=== PATIENT | female | born 1975 | race Caucasian/White ===

== ENCOUNTER 2017-09-11 22:26 | Inpatient (IN) | payer OTHER ==
[~2017-09-11] VITALS: Ht 154.9 cm; Wt 58.5 kg
[2017-09-11 22:38] VITALS: BP 141/82; PULSE 106; RESP 14; TEMP 97.8; O2SAT 75
[2017-09-11] MEDS ORDERED: MORP1TAB25 PO (22:45)
[2017-09-11] MEDS ORDERED: GABA600T PO (22:45)
[2017-09-11] MEDS ORDERED: SODIUM CHLORIDE 0.9% FLUSH 10 ML FLUSH IVF PRN (22:45)
[2017-09-11] MEDS ORDERED: OXYC30TA PO (22:45)
[2017-09-11] MEDS ORDERED: DIAZ10 PO (22:45)
[2017-09-11] MEDS ORDERED: NALOXONE HCL 2 MG/2 ML VIAL IV PUSH ONE (22:45)
--- NOTE | 2017-09-11 22:51 | PD ---
HPI Chief Complaint: Psychiatric Symptoms Time Seen by Provider: 22:45 Travel History International Travel<30 days: No Contact w/Intl Traveler<30days: No Traveled to known affect area: No History of Present Illness HPI Patient was brought in from home, with the Police Department [place] acted her because her family was concerned that she may have overdosed. The patient has access to OxyContin 30s, morphine 30, benzodiazepines as well as Neurontin. According to the family members she was seen taking and known amount of medications at once but it is not clear whether the patient was actually trying to harm herself or commit any type of suicide. However the family was concerned and asked why the police department [place] act.. Upon arrival patient was noted to have a pulse ox 80s , patient was able to provide information although she was somnolent she was able to be arousable and gave history. No known drug allergy Past medical history significant for cholecystectomy, bipolar PFSH Past Medical History Medical History: Denies Significant Hx Influenza Vaccination: No ?: Not LMP: AUGUST 2017 Social History Alcohol Use: No Tobacco Use: No Substance Use: No Allergies-Medications (Allergen,Severity, Reaction): Coded Allergies: No Known Allergies (Unverified , 09/11/17) Reported Meds & Prescriptions Reported Meds & Active Scripts Active Reported Gabapentin 600 Mg Tab 600 Mg PO BID Valium (Diazepam) 10 Mg Tab 10 Mg PO QID Morphine ER (Morphine Sulfate) 30 Mg Tab 30 Mg PO Q8H Oxycodone (Oxycodone HCl) 30 Mg Tab 30 Mg PO Q8H PRN Data Data Last Documented VS Vital Signs Date Time Temp Pulse Resp B/P (MAP) Pulse Ox O2 Delivery O2 Flow Rate FiO2 09/11/17 23:52 80 20 103/65 (78) 94 Nasal Cannula 3.00 09/11/17 23:06 98.0 Orders Orders Complete Blood Count With Diff (09/11/17 22:45) Comprehensive Metabolic Panel (09/11/17 22:45) B-Type Natriuretic Peptide (09/11/17 22:45) Act Partial Throm Time (Ptt) (09/11/17 22:45) Prothrombin Time / Inr (Pt) (09/11/17 22:45) Ckmb (Isoenzyme) Profile (09/11/17 22:45) Troponin I (09/11/17 22:45) Arterial Blood Gas (Abg) (09/11/17 22:45) Urinalysis - C+S If Indicated (09/11/17 22:45) Iv Access Insert/Monitor (09/11/17 22:45) Electrocardiogram (09/11/17 22:45) Ecg Monitoring (09/11/17 22:45) Oximetry (09/11/17 22:45) Oxygen Administration (09/11/17 22:45) Chest, Single Ap (09/11/17 22:45) Ct Pulmonary Angiogram (09/11/17 22:45) Sodium Chloride 0.9% Flush (Ns Flush) (09/11/17 22:45) Drug Screen, Random Urine (09/11/17:45) Alcohol (Ethanol) (09/11/17 22:45) Salicylates (Aspirin) (09/11/17 22:45) Tylenol (Acetaminophen) (09/11/17 22:45) Naloxone Inj (Narcan Inj) (09/11/17 22:45) Ceftriaxone Inj (Rocephin Inj) (09/11/17 23:30) Azithromycin Inj (Zithromax Inj) (09/11/17 23:30) Metronidazole 500 Mg Inj (Flagyl 500 Mg (09/11/17 23:30) Iohexol 350 Inj (Omnipaque 350 Inj) (09/11/17 23:35) CKMB (09/11/17 23:10) CKMB% (09/11/17 23:10) Admit Order (Ed Use Only) (09/12/17 00:35) Labs Laboratory Tests Test 09/11/17 22:45 09/11/17 23:10 Blood Gas Puncture Site RT BRACHIAL Blood Gas Patient Temperature 98.6 Blood Gas HCO3 32 mmol/L Blood Gas Base Excess 7.1 mmol/L Blood Gas Oxygen Saturation 86 % Arterial Blood pH 7.38 Arterial Blood Partial Pressure CO2 56 mmHg Arterial Blood Partial Pressure O2 71 mmHG Arterial Blood Oxygen Content 15.1 Vol % Arterial Blood Carboxyhemoglobin 9.0 % Arterial Blood Methemoglobin 0.6 % Blood Gas Hemoglobin 12.4 G/DL Oxygen Delivery Device NASAL CANNULA Blood Gas Liter Flow 4 L/M White Blood Count 18.6 TH/MM3 Red Blood Count 4.00 MIL/MM3 Hemoglobin 12.8 GM/DL Hematocrit 37.3 % Mean Corpuscular Volume 93.3 FL Mean Corpuscular Hemoglobin 31.9 PG Mean Corpuscular Hemoglobin Concent 34.2 % Red Cell Distribution Width 14.4 % Platelet Count 206 TH/MM3 Mean Platelet Volume 9.1 FL Neutrophils (%) (Auto) 83.3 % Lymphocytes (%) (Auto) 10.7 % Monocytes (%) (Auto) 5.9 % Eosinophils (%) (Auto) 0.0 % Basophils (%) (Auto) 0.1 % Neutrophils # (Auto) 15.5 TH/MM3 Lymphocytes # (Auto) 2.0 TH/MM3 Monocytes # (Auto) 1.1 TH/MM3 Eosinophils # (Auto) 0.0 TH/MM3 Basophils # (Auto) 0.0 TH/MM3 CBC Comment DIFF FINAL Differential Comment Prothrombin Time 10.4 SEC Prothromb Time International Ratio 1.0 RATIO Activated Partial Thromboplast Time 28.9 SEC Blood Urea Nitrogen 6 MG/DL Creatinine 0.84 MG/DL Random Glucose 106 MG/DL Total Protein 7.5 GM/DL Albumin 3.7 GM/DL Calcium Level 8.6 MG/DL Alkaline Phosphatase 119 U/L Aspartate Amino Transf (AST/SGOT) 36 U/L Alanine Aminotransferase (ALT/SGPT) 28 U/L Total Bilirubin 0.4 MG/DL Sodium Level 138 MEQ/L Potassium Level 3.6 MEQ/L Chloride Level 97 MEQ/L Carbon Dioxide Level 32.3 MEQ/L Anion Gap 9 MEQ/L Estimat Glomerular Filtration Rate 74 ML/MIN Total Creatine Kinase 374 U/L Creatine Kinase MB 4.4 NG/ML Creatine Kinase MB % 1.2 % Troponin I 0.24 NG/ML B-Type Natriuretic Peptide 215 PG/ML Salicylates Level 7.1 MG/DL Acetaminophen Level LESS THAN 2.0 MCG/ML Ethyl Alcohol Level LESS THAN 3 MG/DL MDM Medical Decision Making Medical Screen Exam Complete: Yes Emergency Medical Condition: Yes Medical Record Reviewed: Yes Interpretation(s) EKG shows normal sinus rhythm with 87 bpm, normal intervals, PVCs, no evidence of any ST elevation AL. Pulse ox shows an excellent pleth wave, on room air the patient was consistently reading at 88% pulse ox which is consistent with hypoxemia. The patient was noted to have some decreased tidal volume the patient was spontaneously breathing at a regular rate of approximately 12 Differential Diagnosis Pneumothorax versus pneumonia versus ARDS versus aspiration versus pulmonary embolus versus hypoventilation induced hypoxemia secondary to narcotics Narrative Course ABG performed on room air showed a pH of 7.38, PCO2 of 56, PaO2 of 71 and a carboxyhemoglobin of 9%... Consistent with a heavy smoker with evidence of hypoxemia and CO2 retention however CO2 retention is compensated with each is likely secondary to a COPD or emphysematous type of clinical picture CBC shows leukocytosis of 18,000 with 83% neutrophilia, no anemia, normal platelet count Coagulation profile is within normal limits Electrolytes are all within normal limits, normal kidney, normal liver functions. Elevated cardiac enzymes, troponin 0.24, CK-MB index 4.4, beta natruretic peptide 215 Patient will be admitted for IV antibiotics, further evaluation for possible non -STEMI Diagnosis Primary Impression: Pneumonia with hypoxemia Additional Impressions: Opiate overdose status post Narcan Non-STEMI [place] act Admitting Information Admitting Physician Requests: Admit Eric Rose MD September 11, 2017 22:51
--- NOTE | 2017-09-11 23:01 | RADRPT ---
EXAM DATE: 09/11/2017 10:58 PM EDT AGE/SEX: 42 years / Female INDICATIONS: Syncope. Possible overdose. CLINICAL DATA: This is the patient's initial encounter. Patient reports that signs and symptoms have been present for 1 day and indicates a pain score of Nonresponsive. MEDICAL/SURGICAL HISTORY: None. None. COMPARISON: No prior [facility] exams available for comparison. FINDINGS: Patchy consolidation seen of both lung bases, right slightly worse than left. No pleural effusion dem onstrated. No pneumothorax. Heart size within normal limits. CONCLUSION: Bibasilar consolidation. Electronically signed by: Jackson Mercer MD 09/11/2017 11:00 PM EDT
[2017-09-11 23:05] VITALS: RESP 22
[2017-09-11 23:06] VITALS: BP 105/66; PULSE 95; RESP 20; TEMP 98; O2SAT 96
[2017-09-11 23:19] LABS: AUTOMATED NEUTROPHIL # 15.5 TH/MM3 (1.8-7.7); BASOPHIL % 0.1 % (0.0-2.0); HEMATOCRIT 37.3 % (35.0-46.0); HEMOGLOBIN 12.8 GM/DL (11.6-15.3); LYMPH % 10.7 % (9.0-44.0); MEAN CELL VOLUME 93.3 FL (80.0-100.0); MEAN CORPUSCULAR HEMOGLOBIN 31.9 PG (27.0-34.0); MEAN CORPUSCULAR HGB CONC 34.2 % (32.0-36.0); MEAN PLATELET VOLUME 9.1 FL (7.0-11.0); MONO % 5.9 % (0.0-8.0); MONOCYTE # 1.1 TH/MM3 (0-0.9); NEUT % 83.3 % (16.0-70.0); PLATELET COUNT 206 TH/MM3 (150-450); RED CELL DISTRIBUTION WIDTH 14.4 % (11.6-17.2); WHITE BLOOD COUNT 18.6 TH/MM3 (4.0-11.0)
[2017-09-11] MEDS ORDERED: metroNIDAZOLE 500 MG INJ 100 ML IV ONE (23:30)
[2017-09-11] MEDS ORDERED: AZITHROMYCIN INJ 500 MG in SODIUM CHLOR 0.9% 250 ML INJ 250 ML IV ONE (23:30)
[2017-09-11] MEDS ORDERED: cefTRIAXone INJ 1,000 MG in SODIUM CHLORIDE 0.9% INJ 100 ML IV ONE (23:30)
[2017-09-11 23:34] LABS: PROTHROMBIN TIME - PATIENT 10.4 SEC (9.8-11.6)
[2017-09-11] MEDS ORDERED: IOHEXOL 350 MG/ML 10 ML VIAL (for RAD DIAG) IVCONTRAST ONE (23:35)
[2017-09-11 23:45] LABS: ALBUMIN 3.7 GM/DL (3.4-5.0); ALT (GPT) 28 U/L (10-53); AST (GOT) 36 U/L (15-37); BICARBONATE 32.3 MEQ/L (21.0-32.0); BLOOD UREA NITROGEN 6 MG/DL (7-18); CALCIUM 8.6 MG/DL (8.5-10.1); CHLORIDE 97 MEQ/L (98-107); CREATININE 0.84 MG/DL (0.50-1.00); GLOMERULAR FILTRATION RATE 74 ML/MIN (>89); GLUCOSE,RANDOM 106 MG/DL (74-106); SODIUM (NA) 138 MEQ/L (136-145)
--- NOTE | 2017-09-11 23:45 | RADRPT ---
EXAM DATE: 09/11/2017 11:37 PM EDT AGE/SEX: 42 years / Female INDICATIONS: Hypoxemia. CLINICAL DATA: This is the patient's initial encounter. Patient reports that signs and symptoms have been present for 1 day and indicates a pain score of Nonresponsive. MEDICAL/SURGICAL HISTORY: None. Cholecystectomy. Breast implants RADIATION DOSE: 4.95 CTDI (mGy) COMPARISON: No prior [facility] exams available for comparison. TECHNIQUE: Volumetric scanning was performed using a multi-row detector CT scanner during bolus infu griffin of 80 ml Omnipaque 350 (iohexol) nonionic water-soluble contrast as a single exam dose. The franc a was post processed with a variety of visualization algorithms including full volume maximum intensi ty projection and sliding thin slab reformation. Using automated exposure control and adjustment of the mA and/or kV according to patient size, radiation dose was kept as low as reasonably achievable t o obtain optimal diagnostic quality images. FINDINGS: There is no pulmonary embolus. Patchy airspace consolidation seen of both lung bases. There is mild emphysema. No pleural effusion. No pneumothorax. There is a subcarinal mediastinal lymph node that measures approximately 17 x 30 mm in size. There is a 19 mm right hilar lymph node. There is no axillary lymphadenopathy. CONCLUSION: 1. No pulmonary embolus. 2. Patchy bibasilar airspace disease, most likely infectious or inflammatory. 3. Mild emphysema. 4. Nonspecific upper limits of normal to mildly enlarged mediastinal and right hilar lymph nodes. Electronically signed by: Jackson Mercer MD 09/11/2017 11:43 PM EDT
[2017-09-11 23:50] LABS: ALKALINE PHOSPHATASE 119 U/L (45-117); TOTAL BILIRUBIN ADULT 0.4 MG/DL (0.2-1.0); TOTAL PROTEIN 7.5 GM/DL (6.4-8.2); TROPONIN I 0.24 NG/ML (0.02-0.05)
[2017-09-11 23:51] LABS: ACETAMINOPHEN LESS THAN 2.0 MCG/ML (10.0-30.0)
[2017-09-11 23:52] VITALS: BP 103/65; PULSE 80; RESP 20; O2SAT 94
[2017-09-12] VITALS (27 sets, daily range): BP systolic 87–148; BP diastolic 51–78; PULSE 64–92; RESP 16–20; TEMP 98.2–98.9; O2SAT 90–96
[2017-09-12 01:27] LABS: BACTERIA, URINE OCC /hpf; BILIRUBIN, URINE NEG (NEG); BLOOD, URINE SMALL (NEG); GLUCOSE,URINE NEG (NEG); KETONE, URINE TRACE mg/dL (NEG); NITRITE,URINE NEG (NEG); SQUAMOUS EPITHELIAL CELL URINE 9 /hpf (0-5); URINE COLOR YELLOW (YELLW/STRAW); URINE LEUKOCYTE ESTERASE NEG (NEG)
[2017-09-12] MEDS ORDERED: SODIUM CHLORIDE 0.9% FLUSH 10 ML FLUSH IV FLUSH PRN (01:45)
[2017-09-12] MEDS ORDERED: MAGNESIUM HYDROXIDE SUSP 30 ML CUP PO PRN (01:45)
[2017-09-12] MEDS ORDERED: METOCLOPRAMIDE HCL 10 MG/2 ML VIAL IV PUSH PRN (01:45)
[2017-09-12] MEDS ORDERED: ACETAMINOPHEN 325 MG TAB PO PRN (01:45)
[2017-09-12] MEDS ORDERED: LACTULOSE SYRUP 20 GM/30 ML CUP PO PRN (01:45)
[2017-09-12] MEDS ORDERED: RESP: ALBUTEROL 2.5 MG/IPRATROPIUM 0.5 MG NEB (PRN) NEB (01:45)
[2017-09-12] MEDS ORDERED: BISACODYL 10 MG SUPP RECTAL PRN (01:45)
[2017-09-12] MEDS ORDERED: SENNOSIDES 8.6 MG TAB PO PRN (01:45)
[2017-09-12] MEDS ORDERED: Vancomycin Consult Pharmacy 1 EA OTHER SCH (01:45)
[2017-09-12] MEDS: SODIUM CHLOR 0.9% 1000 ML INJ 1,000 ML IV SCH ×3 (02:12→21:14)
--- NOTE | 2017-09-12 02:39 | HHI.HP ---
HPI Service [facility] Primary Care Physician Unknown Admission Diagnosis OPIATE OVERDOSE S/P NARCAN, PNA WITH HYPOXEMIA, COPD EXAC Diagnoses: (1) PNA (pneumonia) Diagnosis: Principal (2) Hypoxia Diagnosis: Principal (3) Elevated troponin Diagnosis: Principal (4) Opiate overdose Diagnosis: Principal Travel History International Travel<30 Days: No Contact w/Intl Traveler <30 Da: No Traveled to Known Affected Are: No History of Present Illness This is a 42-year-old female with a PMH of Narcotic Abuse who is brought to the ER under [place] Act by police secondary to apparent Suicide Attempt with Opiate Overdose. Unclear how much medication patient took, however daughter states she saw patient take a handful of her medications which include OxyContin 30mg, Morphine ER 30mg, Valium 10mg and Neurontin 600mg. Daughter noted pt told he she wanted to end her life. S/p Narcan w/ some improvement, however pt remains lethargic and unable to provide much history. Denies complaints at this time, however. On arrival, BP 141/82, HR 106, O2 sat 75% on RA, Afebrile. O2 sat improved to 94% on 3L NC after Narcan. WBC 18.6. Chemistry essentially unremarkable. Troponin 0 0.24. BNP 215. INR 1.0. Urine Drug Screen positive for Opiates and Benzo. Alcohol negative. UA negative for UTI. CXR with bibasilar consolidation. CTA Pulm negative for PE. S/p Rocephin/Zithro/Flagyl in ER. Review of Systems Except as stated in HPI: all other systems reviewed are Neg ROS: Unable to obtain secondary to lethargy from overdose. Past Family Social History Past Medical History PMH: Narcotic Abuse/Dependence Past Surgical History PAST SURGICAL HISTORY: Cholecystectomy Allergies: Coded Allergies: No Known Allergies (Unverified , 09/11/17) Family History PAST FAMILY HISTORY: Reviewed. No h/o DM or CAD Social History PAST SOCIAL HISTORY: Unknown Physical Exam Vital Signs Vital Signs Date Time Temp Pulse Resp B/P (MAP) Pulse Ox O2 Delivery O2 Flow Rate FiO2 09/11/17 23:52 80 20 103/65 (78) 94 Nasal Cannula 3.00 09/11/17 23:06 98.0 95 20 105/66 (79) 96 Nasal Cannula 4.00 09/11/17 23:05 22 09/11/17 23:04 96 Nasal Cannula 4.00 09/11/17 22:38 97.8 106 14 141/82 (101) 75 Physical Exam PE: GENERAL: Middle-aged white female in no acute distress, lethargic, sleeping, arouses intermittently, answers minimal questions.. HEENT: PERRLA, EOMI. No scleral icterus or conjunctival pallor. No lid lag or facial droop. CARDIOVASCULAR: Regular rate and rhythm. No obvious murmurs to auscultation. No chest tenderness to palpation. RESPIRATORY: No obvious rhonchi or wheezing. Clear to auscultation. Breath sounds equal bilaterally. GASTROINTESTINAL: Abdomen soft, non-tender, nondistended. BS normal. MUSCULOSKELETAL: Extremities without clubbing, cyanosis, or edema. No obvious deformities. NEUROLOGICAL: Lethargic due to overdose, answers questions intermittently. No focal neurologic deficits. Moving both upper and lower extremities spontaneously. Laboratory Laboratory Tests Test 09/11/17 22:45 09/11/17 23:10 09/12/17 00:45 Blood Gas Puncture Site RT BRACHIAL Blood Gas Patient Temperature 98.6 Blood Gas HCO3 32 Blood Gas Base Excess 7.1 Blood Gas Oxygen Saturation 86 Arterial Blood pH 7.38 Arterial Blood Partial Pressure CO2 56 Arterial Blood Partial Pressure O2 71 Arterial Blood Oxygen Content 15.1 Arterial Blood Carboxyhemoglobin 9.0 Arterial Blood Methemoglobin 0.6 Blood Gas Hemoglobin 12.4 Oxygen Delivery Device NASAL CANNULA Blood Gas Liter Flow 4 White Blood Count 18.6 Red Blood Count 4.00 Hemoglobin 12.8 Hematocrit 37.3 Mean Corpuscular Volume 93.3 Mean Corpuscular Hemoglobin 31.9 Mean Corpuscular Hemoglobin Concent 34.2 Red Cell Distribution Width 14.4 Platelet Count 206 Mean Platelet Volume 9.1 Neutrophils (%) (Auto) 83.3 Lymphocytes (%) (Auto) 10.7 Monocytes (%) (Auto) 5.9 Eosinophils (%) (Auto) 0.0 Basophils (%) (Auto) 0.1 Neutrophils # (Auto) 15.5 Lymphocytes # (Auto) 2.0 Monocytes # (Auto) 1.1 Eosinophils # (Auto) 0.0 Basophils # (Auto) 0.0 CBC Comment DIFF FINAL Differential Comment Prothrombin Time 10.4 Prothromb Time International Ratio 1.0 Activated Partial Thromboplast Time 28.9 Blood Urea Nitrogen 6 Creatinine 0.84 Random Glucose 106 Total Protein 7.5 Albumin 3.7 Calcium Level 8.6 Alkaline Phosphatase 119 Aspartate Amino Transf (AST/SGOT) 36 Alanine Aminotransferase (ALT/SGPT) 28 Total Bilirubin 0.4 Sodium Level 138 Potassium Level 3.6 Chloride Level 97 Carbon Dioxide Level 32.3 Anion Gap 9 Estimat Glomerular Filtration Rate 74 Total Creatine Kinase 374 Creatine Kinase MB 4.4 Creatine Kinase MB % 1.2 Troponin I 0.24 B-Type Natriuretic Peptide 215 Salicylates Level 7.1 Acetaminophen Level LESS THAN 2.0 Ethyl Alcohol Level LESS THAN 3 Urine Color YELLOW Urine Turbidity CLEAR Urine pH 7.0 Urine Specific [place] 1.023 Urine Protein NEG Urine Glucose (UA) NEG Urine Ketones TRACE Urine Occult Blood SMALL Urine Nitrite NEG Urine Bilirubin NEG Urine Urobilinogen LESS THAN 2.0 Urine Leukocyte Esterase NEG Urine RBC 2 Urine WBC 1 Urine Squamous Epithelial Cells 9 Urine Bacteria OCC Microscopic Urinalysis Comment CULT NOT INDICATED Urine Opiates Screen POS Urine Barbiturates Screen NEG Urine Amphetamines Screen NEG Urine Benzodiazepines Screen POS Urine Cocaine Screen NEG Urine Cannabinoids Screen NEG Result Diagram: 09/11/17230909/11/172309 Caprini VTE Risk Assessment Caprini VTE Risk Assessment: No/Low Risk (score <= 1) Caprini Risk Assessment Model Point Value = 1 Point Value = 2 Point Value = 3 Point Value = 5 Age 41-60 Minor surgery BMI > 25 kg/m2 Swollen legs Varicose veins or History of unexplained or recurrent spontaneous Oral contraceptives or hormone replacement Sepsis (< 1 month) Serious lung disease, including pneumonia (< 1 month) Abnormal pulmonary function Acute myocardial infarction Congestive heart failure (< 1 month) History of inflammatory bowel disease Medical patient at bed rest Age 61-74 Arthroscopic surgery Major open surgery (> 45 min) Laparoscopic surgery (> 45 min) Malignancy Confined to bed (> 72 hours) Immobilizing plaster cast Central venous access Age >= 75 History of VTE Family history of VTE Factor V Leiden Prothrombin [id number] Lupus anticoagulant Anticardiolipin antibodies Elevated serum homocysteine Heparin-induced thrombocytopenia Other congenital or acquired thrombophilia Stroke (< 1 month) Elective arthroplasty Hip, pelvis, or leg fracture Acute spinal cord injury (< 1 month) Prophylaxis Regimen Total Risk Factor Score Risk Level Prophylaxis Regimen 0-1 Low Early ambulation 2 Moderate Order ONE of the following: *Sequential Compression Device (SCD) *Heparin 5000 units SQ BID 3-4 Higher Order ONE of the following medications: *Heparin 5000 units SQ TID *Enoxaparin/Lovenox 40 mg SQ daily (WT < 150 kg, CrCl > 30 mL/min) *Enoxaparin/Lovenox 30 mg SQ daily (WT < 150 kg, CrCl > 10-29 mL/min) *Enoxaparin/Lovenox 30 mg SQ BID (WT < 150 kg, CrCl > 30 mL/min) AND/OR *Sequential Compression Device (SCD) 5 or more Highest Order ONE of the following medications: *Heparin 5000 units SQ TID (Preferred with Epidurals) *Enoxaparin/Lovenox 40 mg SQ daily (WT < 150 kg, CrCl > 30 mL/min) *Enoxaparin/Lovenox 30 mg SQ daily (WT < 150 kg, CrCl > 10-29 mL/min) *Enoxaparin/Lovenox 30 mg SQ BID (WT < 150 kg, CrCl > 30 mL/min) AND *Sequential Compression Device (SCD) Assessment and Plan Problem List: (1) PNA (pneumonia) ICD Code: J18.9 - Pneumonia, unspecified organism (2) Hypoxia ICD Code: R09.02 - Hypoxemia (3) Elevated troponin ICD Code: R74.8 - Abnormal levels of other serum enzymes (4) Opiate overdose ICD Code: T40.601A - Poisoning by unspecified narcotics, accidental ( unintentional), initial encounter Assessment and Plan A/P: 1. PNA: CXR w/ bibasilar consolidations, WBC 18, s/p Rocephin/Zithro/Flagyl, will continue w/ IV Abx Vanc/Cefepime, DuoNeb prn. 2. Hypoxia: O2 sat 75% on RA, s/p Narcan w/ improvement to 94% on 4L NC, monitor O2 closely. 3. Elevated Trop: Trop 0.24, denies c/o chest pain, likely demand ischemia from hypoxia, check serial cardiac enzymes for trend, consult Cardiology for further evaluation. 4. Opiate Overdose: and Benzo, unclear how much she took, s/p Narcan with some improvement but remains lethargic/intermittently arousable. Currently under [place] Act. Consult Psych 5. DVT Prophylaxis: SCD/Teds 6. Social work for d/c planning as needed. 7. Case discussed w/ ER physician at length, labs/records/imaging reviewed by me. Physician Certification 2 Midnight Certification Type: Admission for Inpatient Services Order for Inpatient Services The services are ordered in accordance with Medicare regulations or non- Medicare payer requirements, as applicable. In the case of services not specified as inpatient-only, they are appropriately provided as inpatient services in accordance with the 2-midnight benchmark. Estimated LOS (days): 2 days is the estimated time the patient will need to remain in the hospital, assuming treatment plan goals are met and no additional complications. Post-Hospital Plan: Not yet determined Carito Guevara MD September 12, 2017 02:39
[2017-09-12] MEDS ORDERED: VANCOMYCIN INJ 1,250 MG in SODIUM CHLOR 0.9% 250 ML INJ 250 ML IV ONE (03:00)
[2017-09-12] MEDS: SODIUM CHLORIDE 0.9% FLUSH 10 ML FLUSH IV FLUSH SCH ×2 (08:22→21:00)
[2017-09-12] MEDS: DOCUSATE SODIUM 50 MG/SENNA 8.6 MG TAB PO SCH ×2 (08:22→21:00)
[2017-09-12] MEDS: CEFEPIME INJ 1,000 MG in SODIUM CHLORIDE 0.9% INJ 100 ML IV SCH ×2 (08:22→21:14)
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
--- NOTE | 2017-09-12 12:09 | MB ---
cc: Jeff Munroe MD DATE: 09/12/2017 REASON FOR CONSULTATION: Abnormal troponin levels. HISTORY OF PRESENT ILLNESS: The patient is a 42-year-old white female with no major past medical history who was brought to the hospital under [place] Act due to family concerns of drug overdose. Troponin levels were checked and found to be slightly abnormal. The patient denies any chest pain, shortness of breath, dizziness, syncope, near syncope, palpitations, pedal edema, paroxysmal nocturnal dyspnea, flu symptoms, cough. PAST MEDICAL HISTORY: None. PAST SURGICAL HISTORY: Cholecystectomy. CARDIAC MEDICATIONS AT HOME: None. ALLERGIES: NO KNOWN DRUG ALLERGIES. FAMILY HISTORY: The patient's father, who is 60, has problems with congestive heart failure, although with no definite history of myocardial infarction. SOCIAL HISTORY: The patient smokes a little less than a pack of cigarettes per day. She denies alcohol abuse. REVIEW OF SYSTEMS: As in history of present illness, otherwise negative or noncontributory. She also denies headache, abdominal pain, melena, dyspepsia, bright red blood per rectum. PHYSICAL EXAMINATION: VITAL SIGNS: Blood pressure 87/51 with a pulse of 70, respirations 18. GENERAL: She is a well-developed, well-nourished white female, in no acute distress. NECK: Jugular venous pressure is normal. Carotid pulses are 2+ bilaterally and without bruits. CHEST: Reveals clear lungs ambrocio. CARDIAC: She has a regular rhythm and rate without S3, S4, or murmur. ABDOMEN: She has a soft, nontender abdomen. Bowel sounds are present. There is no definite hepatosplenomegaly. EXTREMITIES: Reveals no clubbing, cyanosis or edema. LABORATORY DATA: EKG: The EKG is currently not in the computer and I am unable to locate the EKG in her chart or on the floor. Chest x-ray shows bibasilar consolidation. Laboratory data includes WBC 18.6, hemoglobin 12.8, platelets 206. Potassium 3.6, BUN 6, creatinine 0.84. CK 374 with 1.2% MB fraction, troponin 0.24. IMPRESSION: Minimal troponin elevation in this 42-year-old white female with no major past medical history. There is no other clinical evidence for acute coronary syndrome. CK is negative for myocardial infarction. I am currently unable to locate her EKG, but reportedly it shows no acute changes. The patient has no major risk factors for coronary disease. There is no definite evidence for congestive heart failure. RECOMMENDATIONS: No additional cardiac workup at this time. MD LAKEISHA Recinos/TL , 11:44 AM , 12:08 PM MTDNael
[2017-09-12] MEDS: GABAPENTIN 300 MG CAP PO SCH ×2 (12:46→21:13)
[2017-09-12] MEDS: DIAZEPAM 5 MG TAB PO SCH ×2 (14:13→21:13)
[2017-09-12] MEDS: VANCOMYCIN INJ 750 MG in SODIUM CHLOR 0.9% 250 ML INJ 250 ML IV SCH (14:35)
--- NOTE | 2017-09-12 14:36 | EKG ---
Date Performed: 09/11/2017 Time Performed: 22:48:49 PTAGE: 42 years EKG: Sinus rhythm NORMAL ECG NO PREVIOUS TRACING DOCTOR: Fernando Arevalo Interpretating Date/Time 09/12/2017 14:35:13
--- NOTE | 2017-09-12 14:36 | EKG ---
Date Performed: 09/12/2017 Time Performed: 07:41:08 PTAGE: 42 years EKG: Sinus rhythm Poor R wave progression - probable normal variant Anterior T wave changes are nonspecific Borderline ECG Compared to PREVIOUS TRACING , the minor T-wave changes are new. PREVIOUS TRACIN09/11/2017 22.48 DOCTOR: Fernando Arevalo Interpretating Date/Time 09/12/2017 14:35:38
[2017-09-12] MEDS ORDERED: POTASSIUM CHLORIDE 20 MEQ CONTROLLED RELEASE TAB PO ONE (15:45)
[2017-09-13] VITALS (23 sets, daily range): BP systolic 119–137; BP diastolic 57–82; PULSE 46–82; RESP 16–20; TEMP 97.6–98.7; O2SAT 92–96
[2017-09-13] MEDS: VANCOMYCIN INJ 750 MG in SODIUM CHLOR 0.9% 250 ML INJ 250 ML IV SCH ×3 (02:34→21:40)
[2017-09-13 04:51] LABS: AUTOMATED NEUTROPHIL # 8.2 TH/MM3 (1.8-7.7); BASOPHIL % 0.2 % (0.0-2.0); EOSINOPHIL # 0.2 TH/MM3 (0-0.4); EOSINOPHIL % 1.7 % (0.0-4.0); HEMOGLOBIN 11.8 GM/DL (11.6-15.3); LYMPH % 21.2 % (9.0-44.0); LYMPHOCYTE # 2.5 TH/MM3 (1.0-4.8); MEAN CELL VOLUME 93.8 FL (80.0-100.0); MEAN CORPUSCULAR HEMOGLOBIN 31.5 PG (27.0-34.0); MEAN CORPUSCULAR HGB CONC 33.6 % (32.0-36.0); MEAN PLATELET VOLUME 9.7 FL (7.0-11.0); MONO % 7.7 % (0.0-8.0); MONOCYTE # 0.9 TH/MM3 (0-0.9); NEUT % 69.2 % (16.0-70.0); PLATELET COUNT 207 TH/MM3 (150-450); RED BLOOD COUNT 3.73 MIL/MM3 (4.00-5.30); RED CELL DISTRIBUTION WIDTH 14.5 % (11.6-17.2); WHITE BLOOD COUNT 11.8 TH/MM3 (4.0-11.0)
[2017-09-13] MEDS: DIAZEPAM 5 MG TAB PO SCH ×3 (05:40→20:52)
[2017-09-13 05:51] LABS: ALBUMIN 2.6 GM/DL (3.4-5.0); ALKALINE PHOSPHATASE 85 U/L (45-117); ALT (GPT) 25 U/L (10-53); AST (GOT) 42 U/L (15-37); BICARBONATE 27.4 MEQ/L (21.0-32.0); BLOOD UREA NITROGEN 4 MG/DL (7-18); CALCIUM 7.9 MG/DL (8.5-10.1); CHLORIDE 109 MEQ/L (98-107); CREATININE 0.52 MG/DL (0.50-1.00); GLOMERULAR FILTRATION RATE 129 ML/MIN (>89); GLUCOSE,RANDOM 83 MG/DL (74-106); SODIUM (NA) 144 MEQ/L (136-145); TOTAL BILIRUBIN ADULT 0.3 MG/DL (0.2-1.0); TOTAL PROTEIN 5.5 GM/DL (6.4-8.2)
[2017-09-13] MEDS ORDERED: POTASSIUM CHLORIDE 20 MEQ CONTROLLED RELEASE TAB PO ONE ×2 (06:15→19:30)
[2017-09-13 06:35] LABS: MAGNESIUM 1.8 MG/DL (1.5-2.5)
[2017-09-13] MEDS: SODIUM CHLOR 0.9% 1000 ML INJ 1,000 ML IV SCH (07:31)
[2017-09-13] MEDS: CEFEPIME INJ 1,000 MG in SODIUM CHLORIDE 0.9% INJ 100 ML IV SCH ×2 (09:00→20:50)
[2017-09-13] MEDS: SODIUM CHLORIDE 0.9% FLUSH 10 ML FLUSH IV FLUSH SCH ×2 (09:00→20:52)
[2017-09-13] MEDS: DOCUSATE SODIUM 50 MG/SENNA 8.6 MG TAB PO SCH ×2 (09:29→20:51)
[2017-09-13] MEDS: GABAPENTIN 300 MG CAP PO SCH ×2 (09:30→20:51)
[2017-09-13] MEDS: NS + KCL 20 MEQ INJ 1,000 ML IV SCH ×2 (12:15→21:40)
--- NOTE | 2017-09-13 12:19 | HHI.PR ---
Subjective Remarks awake and alert, denies any cough, pain or shortness of breath or diarrhea good po wondering why she is being kept here doem family dynamics- disagreement with siblings Objective Vitals Vital Signs Date Time Temp Pulse Resp B/P (MAP) Pulse Ox O2 Delivery O2 Flow Rate FiO2 09/13/17 11:18 98.5 69 18 129/73 (91) 94 09/13/17 11:18 65 09/13/17 10:36 77 09/13/17 09:02 74 09/13/17 08:52 97.6 71 18 125/78 (94) 95 09/13/17 08:52 71 09/13/17 06:00 69 09/13/17 05:00 68 09/13/17 04:00 70 09/13/17 03:00 82 16 129/76 (93) 92 09/13/17 03:00 80 09/13/17 02:00 74 09/13/17 01:00 74 09/13/17 00:00 68 09/12/17 23:40 79 20 112/69 (83) 92 09/12/17 23:00 77 09/12/17 22:00 72 09/12/17 21:00 70 09/12/17 20:00 74 09/12/17 19:45 98.3 80 16 113/69 (84) 92 09/12/17 19:00 69 09/12/17 18:01 68 09/12/17 17:00 84 09/12/17 16:00 72 09/12/17 15:45 98.9 75 18 115/69 (84) 90 09/12/17 15:00 81 09/12/17 14:00 76 09/12/17 13:00 74 I/O 09/12/17 09/12/17 09/12/17 09/13/17 09/13/17 09/13/17 07:00 15:00 23:00 07:00 15:00 23:00 Intake Total 1060 ml 1200 ml 480 ml Output Total 400 ml Balance 1060 ml 800 ml 480 ml Intake Oral 360 ml 400 ml 480 ml IV Total 700 ml 800 ml Output Urine Total 400 ml # Voids 2 2 # Bowel Movements 1 0 Result Diagram: 09/13/17 0340 09/13/17 0340 Imaging Last Impressions Chest X-Ray 5/26/18 2245 Signed Impressions: CONCLUSION: Bibasilar consolidation. CT Angiography 09/11/172244 Signed Impressions: CONCLUSION: 1. No pulmonary embolus. 2. Patchy bibasilar airspace disease, most likely infectious or inflammatory. 3. Mild emphysema. 4. Nonspecific upper limits of normal to mildly enlarged mediastinal and right hilar lymph nodes. Objective Remarks awake and alert, not acute disteess, appears a little manic anicteric no throat exudates lungs- no rales regular rhythm abdomens oft, nontender extremities no edema neuro exam- unrmarkable A/P Problem List: (1) PNA (pneumonia) ICD Code: J18.9 - Pneumonia, unspecified organism (2) Hypoxia ICD Code: R09.02 - Hypoxemia (3) Elevated troponin ICD Code: R74.8 - Abnormal levels of other serum enzymes (4) Opiate overdose ICD Code: T40.601A - Poisoning by unspecified narcotics, accidental ( unintentional), initial encounter Assessment and Plan 42 years old female PNA: CXR w/ bibasilar consolidations, WBC 18 trended down, 11 will continue w / IV Abx Vanc/Cefepime, DuoNeb prn. Hypoxia:resolved- good sats at room air. O2 sat 75% on RA on admission, s/p Narcan w/ improvement t monitor O2 closely. Elevated Trop: non cardiac, seen by cardiology- no need for further work up Trop 0.24, denies c/o chest pain, likely demand ischemia from hypoxia, check serial cardiac enzymes for trend, consult Cardiology for further evaluation. Opiate Overdose: and Benzo, unclear how much she took, s/p Narcan. MS improved. Currently under [place] Act. Psychiatry ff Rhabdomyolysis- start IVF. FF CK level Hypokalemia- received 40 meq po x 1 now. Start IVF with KCL for rhabdo. give another po KCL this evening. check BMP in am DVT Prophylaxis: SCD/Teds. Up and ambulating Nolan Portillo MD September 13, 2017 12:19
[2017-09-13] MEDS ORDERED: POTASSIUM CHLOR 10 MEQ PREMIX 100 ML IV SCH (12:30)
[2017-09-13] MEDS ORDERED: PHARMACY ORDERED LAB ONE (13:45)
[2017-09-13 15:07] LABS: VANCOMYCIN TROUGH 6.9 MCG/ML (5.0-10.0)
[2017-09-14] VITALS (17 sets, daily range): BP systolic 112–147; BP diastolic 70–88; PULSE 35–67; RESP 18–20; TEMP 97.7–98.4; O2SAT 93–96
[2017-09-14] MEDS: VANCOMYCIN INJ 750 MG in SODIUM CHLOR 0.9% 250 ML INJ 250 ML IV SCH ×2 (05:06→14:02)
[2017-09-14] MEDS: DIAZEPAM 5 MG TAB PO SCH ×2 (05:06→14:01)
[2017-09-14 06:43] LABS: BICARBONATE 22.7 MEQ/L (21.0-32.0); CREATININE 0.46 MG/DL (0.50-1.00)
[2017-09-14] MEDS: GABAPENTIN 300 MG CAP PO SCH (09:07)
[2017-09-14] MEDS: CEFEPIME INJ 1,000 MG in SODIUM CHLORIDE 0.9% INJ 100 ML IV SCH (09:07)
[2017-09-14] MEDS: DOCUSATE SODIUM 50 MG/SENNA 8.6 MG TAB PO SCH (09:07)
[2017-09-14] MEDS: SODIUM CHLORIDE 0.9% FLUSH 10 ML FLUSH IV FLUSH SCH (09:08)
[2017-09-14] MEDS: NS + KCL 20 MEQ INJ 1,000 ML IV SCH (09:08)
--- NOTE | 2017-09-14 10:57 | HHI.PYPN ---
Subjective Remarks Patient seen and examined. Chart reviewed. Case discussed with Dr. Hardy. Janis at the bedside. On my examination today, the patient denies making any sort of overdose prior to admission. She denies any suicidal or homicidal ideation, intent or plan and contracts for safety. I can elicit no depressive or hypomanic/manic symptoms. She denies any audiovisual hallucinations. I can elicit no delusional material. She reports a history of anxiety and depression and follows with Dr. Silveira. She denies any history of suicide attempts. Remainder of the psychiatric ROS is negative. With patient's permission, obtained collateral information from patient's daughter Rosalinda Salazar at [phone]. Rosalinda reports that prior to admission, patient was threatening suicide "I am sure because she was all messed up on pills." Daughter reports that patient regularly abuses her prescribed medications. Patient has no history of self-harm per daughter. Rosalinda notes she has been speaking with patient daily and "she sounds 110% better." Rosalinda does not believe patient needs to be psychiatrically hospitalized. She has no concerns about the [place] Act being lifted and patient being discharged home from the medical floor. She notes that she plans to check in on patient daily. I strongly recommend that family secure home environment of all potential means of harm to self or others including but not limited to guns, knives and medications. In particular, regarding the medications, I suggest that family secure and dispense these medications to the patient only as prescribed and at most a day at a time. I have educated Rosalinda regarding the [place] act. I spent about 12 minutes in telephone consultation with Rosalinda. Review of Systems Except as stated in HPI: all other systems reviewed are Neg Mental Status Examination Appearance: Appropriate Consciousness: Alert Orientation: x4 (No evidence of delirium) Motor Activity: Other (No motor abnormalities noted. No signs of intoxication or withdrawal noted.) Speech: Unremarkable Language: Adequate Fund of Knowledge: Adequate Attention and Concentration: Adequate Memory: Unremarkable (Grossly intact on clinical examination.) Mood: Appropriate Affect: Appropriate Thought Process & Associations: Intact Thought Content: Appropriate Hallucination Type: None Delusion Type: None Suicidal Ideation: No Suicidal Plan: No Suicidal Intention: No Homicidal Ideation: No Homicidal Plan: No Homicidal Intention: No Insight: Poor Judgment: Poor Mental Status Exam Remarks Registration 3 out of 3 and recall 3 out of 3 at 3 minutes. Patient is oriented 4. She is able to do serial sevens through 5 iterations with 1 error. She is able to name 2 items and repeat a phrase. Results Labs Test 09/13/17 14:10 09/14/17 05:33 Potassium Level 3.3 MEQ/L 3.7 MEQ/L Vancomycin Level Trough 6.9 MCG/ML Blood Urea Nitrogen 4 MG/DL Creatinine 0.46 MG/DL Random Glucose 81 MG/DL Calcium Level 8.0 MG/DL Sodium Level 146 MEQ/L Chloride Level 116 MEQ/L Carbon Dioxide Level 22.7 MEQ/L Anion Gap 7 MEQ/L Estimat Glomerular Filtration Rate 149 ML/MIN Total Creatine Kinase 459 U/L Creatine Kinase MB 1.9 NG/ML Creatine Kinase MB % 0.4 % Labs reviewed. Vitals/IOs Vital Signs Date Time Temp Pulse Resp B/P (MAP) Pulse Ox O2 Delivery O2 Flow Rate FiO2 09/14/17 10:12 58 09/14/17 07:55 98.4 18 140/79 (99) 95 09/12/17 03:35 Nasal Cannula 3.00 Intake and Output 09/14/17 09/14/17 09/15/17 08:00 16:00 00:00 Intake Total 240 ml Output Total 200 ml Balance 40 ml Assessment & Plan Problem List: (1) Adjustment disorder, unspecified ICD Codes: F43.20 - Adjustment disorder, unspecified Assessment & Plan: Resolved (2) Polysubstance abuse ICD Codes: F19.10 - Other psychoactive substance abuse, uncomplicated Assessment & Plan: Suspected Assessment & Plan Patient is presently denying suicidal or homicidal ideation. There is no evidence of unstable mental illness as defined in the [place] act in this patient at this time. There is no evidence of self-care deficit stemming from mental illness as defined under the [place] act. I have obtained reassuring collateral information from the patient's daughter. Synthesizing this information and based on the available evidence, I litigation support analyst that the patient does not meet the Hig[place] act criteria. I have lifted the [place] act. She likely has some degree of substance use disorder and should seek treatment for this on an outpatient basis. [facility] also [facility]'s daughter. I have counseled the patient to follow up with outpatient provider. I have counseled the patient regarding warning signs for need to return to the psychiatric emergency room as part of a general safety plan. Thank you very much for this consultation. I spent >25 minutes in patient evaluation, gathering collateral and in care coordination as well as additional time in chart review and documentation. Justification for Cont. Inpt. Per primary team Discharge Planning [place] act lifted. Disposition as per primary team. William Rojo MD September 14, 2017 10:57
--- NOTE | 2017-09-14 12:18 | HHI.PR ---
Subjective Remarks This is a 42-year-old female with a PMH of Narcotic Abuse who is brought to the ER under [place] by police secondary to apparent Suicide Attempt with Opiate Overdose. Unclear how much medication patient took, however daughter states she saw patient take a handful of her medications which include OxyContin 30mg, Morphine ER 30mg, Valium 10mg and Neurontin 600mg. Daughter noted pt told he she wanted to end her life. S/p Narcan w/ some improvement, however pt remains lethargic and unable to provide much history. Denies complaints at this time, however. On arrival, BP 141/82, HR 106, O2 sat 75% on RA, Afebrile. O2 sat improved to 94% on 3L NC after Narcan. WBC 18.6. Chemistry essentially unremarkable. Troponin 0 0.24. BNP 215. INR 1.0. Urine Drug Screen positive for Opiates and Benzo. Alcohol negative. UA negative for UTI. CXR with bibasilar consolidation. CTA Pulm negative for PE. S/p Rocephin/Zithro/Flagyl in ER. 09-13 awake and alert, denies any cough, pain or shortness of breath or diarrhea good po wondering why she is being kept here family dynamics- disagreement with siblings 5-29 SEEN BY PSYCHIATRY [place] ACT HAS NOT BEEN LIFTED STILL COUGHING [place] RN AND PT AND PSYCHIATRY TRANSFER TO MED SURG Objective Vitals Vital Signs Date Time Temp Pulse Resp B/P (MAP) Pulse Ox O2 Delivery O2 Flow Rate FiO2 09/14/17 11:51 98.4 54 18 131/77 (95) 96 09/14/17 11:51 56 09/14/17 10:12 58 09/14/17 08:06 60 09/14/17 07:55 62 09/14/17 07:55 98.4 62 18 140/79 (99) 95 09/14/17 06:00 44 09/14/17 05:00 62 09/14/17 04:00 54 09/14/17 03:24 97.7 67 20 147/88 (107) 93 09/14/17 03:00 48 09/14/17 02:00 52 09/14/17 01:00 56 09/14/17 00:00 55 09/13/17 23:11 69 09/13/17 23:11 97.9 69 20 137/82 (100) 92 09/13/17 22:00 46 09/13/17 21:00 50 09/13/17 20:00 50 09/13/17 19:00 49 09/13/17 19:00 98.4 62 20 119/67 (84) 94 09/13/17 18:33 61 09/13/17 17:37 59 09/13/17 16:25 56 09/13/17 15:45 51 09/13/17 15:45 98.7 51 18 119/57 (77) 96 09/13/17 14:53 76 09/13/17 13:01 82 09/13/17 12:49 80 I/O 09/13/17 09/13/17 09/13/17 09/14/17 09/14/17 09/14/17 07:00 15:00 23:00 07:00 15:00 23:00 Intake Total 480 ml 480 ml 240 ml Output Total 400 ml 200 ml Balance 480 ml 80 ml 40 ml Intake Oral 480 ml 480 ml 240 ml Output Urine Total 400 ml 200 ml # Voids 2 2 2 # Bowel Movements 0 1 0 Result Diagram: 09/13/17 0340 09/14/17 0533 Other Results Laboratory Tests Test 09/11/17 22:45 09/11/17 23:10 09/12/17 00:45 09/12/17 06:33 Blood Gas Puncture Site RT BRACHIAL Blood Gas Patient Temperature 98.6 Blood Gas HCO3 32 mmol/L Blood Gas Base Excess 7.1 mmol/L Blood Gas Oxygen Saturation 86 % Arterial Blood pH 7.38 Arterial Blood Partial Pressure CO2 56 mmHg Arterial Blood Partial Pressure O2 71 mmHG Arterial Blood Oxygen Content 15.1 Vol % Arterial Blood Carboxyhemoglobin 9.0 % Arterial Blood Methemoglobin 0.6 % Blood Gas Hemoglobin 12.4 G/DL Oxygen Delivery Device NASAL CANNULA Blood Gas Liter Flow 4 L/M White Blood Count 18.6 TH/MM3 Red Blood Count 4.00 MIL/MM3 Hemoglobin 12.8 GM/DL Hematocrit 37.3 % Mean Corpuscular Volume 93.3 FL Mean Corpuscular Hemoglobin 31.9 PG Mean Corpuscular Hemoglobin Concent 34.2 % Red Cell Distribution Width 14.4 % Platelet Count 206 TH/MM3 Mean Platelet Volume 9.1 FL Neutrophils (%) (Auto) 83.3 % Lymphocytes (%) (Auto) 10.7 % Monocytes (%) (Auto) 5.9 % Eosinophils (%) (Auto) 0.0 % Basophils (%) (Auto) 0.1 % Neutrophils # (Auto) 15.5 TH/MM3 Lymphocytes # (Auto) 2.0 TH/MM3 Monocytes # (Auto) 1.1 TH/MM3 Eosinophils # (Auto) 0.0 TH/MM3 Basophils # (Auto) 0.0 TH/MM3 CBC Comment DIFF FINAL Differential Comment Prothrombin Time 10.4 SEC Prothromb Time International Ratio 1.0 RATIO Activated Partial Thromboplast Time 28.9 SEC Blood Urea Nitrogen 6 MG/DL Creatinine 0.84 MG/DL Random Glucose 106 MG/DL Total Protein 7.5 GM/DL Albumin 3.7 GM/DL Calcium Level 8.6 MG/DL Alkaline Phosphatase 119 U/L Aspartate Amino Transf (AST/SGOT) 36 U/L Alanine Aminotransferase (ALT/SGPT) 28 U/L Total Bilirubin 0.4 MG/DL Sodium Level 138 MEQ/L Potassium Level 3.6 MEQ/L Chloride Level 97 MEQ/L Carbon Dioxide Level 32.3 MEQ/L Anion Gap 9 MEQ/L Estimat Glomerular Filtration Rate 74 ML/MIN Total Creatine Kinase 374 U/L Creatine Kinase MB 4.4 NG/ML Creatine Kinase MB % 1.2 % Troponin I 0.24 NG/ML 0.15 NG/ML B-Type Natriuretic Peptide 215 PG/ML Salicylates Level 7.1 MG/DL Acetaminophen Level LESS THAN 2.0 MCG/ML Ethyl Alcohol Level LESS THAN 3 MG/DL Urine Color YELLOW Urine Turbidity CLEAR Urine pH 7.0 Urine Specific [place] 1.023 Urine Protein NEG mg/dL Urine Glucose (UA) NEG mg/dL Urine Ketones TRACE mg/dL Urine Occult Blood SMALL Urine Nitrite NEG Urine Bilirubin NEG Urine Urobilinogen LESS THAN 2.0 MG/DL Urine Leukocyte Esterase NEG Urine RBC 2 /hpf Urine WBC 1 /hpf Urine Squamous Epithelial Cells 9 /hpf Urine Bacteria OCC /hpf Microscopic Urinalysis Comment CULT NOT INDICATED Urine Opiates Screen POS Urine Barbiturates Screen NEG Urine Amphetamines Screen NEG Urine Benzodiazepines Screen POS Urine Cocaine Screen NEG Urine Cannabinoids Screen NEG Test 09/13/17 03:40 09/13/17 14:10 09/14/17 05:33 White Blood Count 11.8 TH/MM3 Red Blood Count 3.73 MIL/MM3 Hemoglobin 11.8 GM/DL Hematocrit 35.0 % Mean Corpuscular Volume 93.8 FL Mean Corpuscular Hemoglobin 31.5 PG Mean Corpuscular Hemoglobin Concent 33.6 % Red Cell Distribution Width 14.5 % Platelet Count 207 TH/MM3 Mean Platelet Volume 9.7 FL Neutrophils (%) (Auto) 69.2 % Lymphocytes (%) (Auto) 21.2 % Monocytes (%) (Auto) 7.7 % Eosinophils (%) (Auto) 1.7 % Basophils (%) (Auto) 0.2 % Neutrophils # (Auto) 8.2 TH/MM3 Lymphocytes # (Auto) 2.5 TH/MM3 Monocytes # (Auto) 0.9 TH/MM3 Eosinophils # (Auto) 0.2 TH/MM3 Basophils # (Auto) 0.0 TH/MM3 CBC Comment DIFF FINAL Differential Comment Blood Urea Nitrogen 4 MG/DL 4 MG/DL Creatinine 0.52 MG/DL 0.46 MG/DL Random Glucose 83 MG/DL 81 MG/DL Total Protein 5.5 GM/DL Albumin 2.6 GM/DL Calcium Level 7.9 MG/DL 8.0 MG/DL Magnesium Level 1.8 MG/DL Alkaline Phosphatase 85 U/L Aspartate Amino Transf (AST/SGOT) 42 U/L Alanine Aminotransferase (ALT/SGPT) 25 U/L Total Bilirubin 0.3 MG/DL Sodium Level 144 MEQ/L 146 MEQ/L Potassium Level 2.9 MEQ/L 3.3 MEQ/L 3.7 MEQ/L Chloride Level 109 MEQ/L 116 MEQ/L Carbon Dioxide Level 27.4 MEQ/L 22.7 MEQ/L Anion Gap 8 MEQ/L 7 MEQ/L Estimat Glomerular Filtration Rate 129 ML/MIN 149 ML/MIN Total Creatine Kinase 817 U/L 459 U/L Creatine Kinase MB 2.7 NG/ML 1.9 NG/ML Creatine Kinase MB % 0.3 % 0.4 % Vancomycin Level Trough 6.9 MCG/ML Imaging Last Impressions Chest X-Ray 09/11/172244 Signed Impressions: CONCLUSION: Bibasilar consolidation. CT Angiography 09/11/172244 Signed Impressions: CONCLUSION: 1. No pulmonary embolus. 2. Patchy bibasilar airspace disease, most likely infectious or inflammatory. 3. Mild emphysema. 4. Nonspecific upper limits of normal to mildly enlarged mediastinal and right hilar lymph nodes. Objective Remarks GENERAL: Alert and oriented 3 talkative and cooperative SKIN: Warm and dry. HEAD: Atraumatic. Normocephalic. EYES: Pupils equal and round. No scleral icterus. No injection or drainage. ENT: No nasal bleeding or discharge. Mucous membranes pink and moist. NECK: Trachea midline. No JVD. CARDIOVASCULAR: Regular rate and rhythm. RESPIRATORY: No accessory muscle use. Breath sounds equal bilaterally. Few scattered rhonchi GASTROINTESTINAL: Abdomen soft, non-tender, nondistended. Hepatic and splenic margins not palpable. MUSCULOSKELETAL: Extremities without clubbing, cyanosis, or edema. No obvious deformities. NEUROLOGICAL: Awake and alert. No obvious cranial nerve deficits. Motor grossly within normal limits. Five out of 5 muscle strength in the arms and legs. Normal speech. PSYCHIATRIC: INAppropriate mood and affect; insight and judgment ABnormal. Medications and IVs Current Medications Sodium Chloride (NS Flush) 2 ml UNSCH PRN IVF FLUSH AFTER USING IV ACCESS Last administered on 09/11/17 23:00; Start 09/11/17 at 22:45; Stop 09/12/17 at 01:41 ; Status DC Naloxone HCl (Narcan Inj) 2 mg ONCE ONCE IV PUSH Last administered on 23:00; Start 09/11/17 at 22:45; Stop 09/11/17 at 22:48; Status DC Ceftriaxone Sodium 1000 mg/ Sodium Chloride 100 ml @ 200 mls/hr ONCE ONCE IV Last administered on 09/11/17 23:49; Start 09/11/17 at 23:30; Stop 09/11/17 at 23:59; Status DC Azithromycin 500 mg/Sodium Chloride 250 ml @ 250 mls/hr ONCE ONCE IV Last administered on 09/11/17 23:49; Start 09/11/17 at 23:30; Stop 09/12/17 at 00:29 ; Status DC Metronidazole 100 ml @ 100 mls/hr ONCE ONCE IV Last administered on 23:50; Start 09/11/17 at 23:30; Stop 09/12/17 at 00:29; Status DC Iohexol (Omnipaque 350 Inj) 80 ml STK-MED ONCE IVCONTRAST Last administered on 09/11/17 23:35; Start 09/11/17 at 23:35; Stop 09/11/17 at 23:36; Status DC Pharmacy Profile Note 0 ml @ 0 mls/hr UNSCH OTHER ; Start 09/12/17 at 01:45 Cefepime HCl 1000 mg/Sodium Chloride 100 ml @ 200 mls/hr Q12H IV Last administered on 09/14/17at 09:07; Start 09/12/17 at 09:00 Albuterol/ Ipratropium (Duoneb Neb) 1 ampule Q4HR NEB PRN NEB SOB/WHEEZING; Start 09/12/17 at 01:45 Sodium Chloride 1,000 ml @ 100 mls/hr Q10H IV Last administered on 09/12/17at 21:14; Start 09/12/17 at 01:31; Stop 09/13/17 at 12:26; Status DC Sodium Chloride (NS Flush) 2 ml UNSCH PRN IV FLUSH FLUSH AFTER USING IV ACCESS ; Start 09/12/17 at 01:45 Sodium Chloride (NS Flush) 2 ml BID IV FLUSH Last administered on 09/14/17at 09: 08; Start 09/12/17 at 09:00 Metoclopramide HCl (Reglan Inj) 5 mg Q6H PRN IV PUSH NAUSEA OR VOMITING; Start 09/12/17 at 01:45 Acetaminophen (Tylenol) 650 mg Q6H PRN PO FEVER/PAIN SCALE 1 TO 2 Last administered on 09/13/17at 02:39; Start 09/12/17 at 01:45 Senna/Docusate Sodium ([place]-Colace) 1 tab BID PO Last administered on at 09:07; Start 09/12/17 at 09:00 Magnesium Hydroxide (Milk Of Magnesia Liq) 30 ml Q12H PRN PO Mild constipation ; Start 09/12/17 at 01:45 Sennosides (Senokot) 17.2 mg Q12H PRN PO Moderate constipation; Start 09/12/17 at 01:45 Bisacodyl (Dulcolax Supp) 10 mg DAILY PRN RECTAL SEVERE CONSITIPATION; Start at 01:45 Lactulose (Lactulose Liq) 30 ml DAILY PRN PO SEVERE CONSITIPATION; Start at 01:45 Vancomycin HCl 1250 mg/Sodium Chloride 262.5 ml @ 250 mls/hr ONCE@0300 ONCE IV Last administered on 09/12/17at 02:12; Start 09/12/17 at 03:00; Stop at 04:02; Status DC Diazepam (Valium) 5 mg Q8HR PO Last administered on 09/14/17at 05:06; Start at 14:00 Gabapentin (Neurontin) 600 mg BID PO Last administered on 09/14/17at 09:07; Start 09/12/17 at 10:45 Vancomycin HCl 750 mg/Sodium Chloride 257.5 ml @ 250 mls/hr Q12H IV Last administered on 09/13/17at 14:44; Start 09/12/17 at 14:00; Stop 09/13/17 at 15:21 ; Status DC Miscellaneous Information ([facility] Ordered Lab Info) SPECIFIC LAB TO BE DRAWN:VA... ONCE ONCE .XX Last administered on 09/13/17at 13:45; Start at 13:45; Stop 09/13/17 at 13:46; Status DC Potassium Chloride (KCl) 20 meq ONCE ONCE PO Last administered on 09/12/17at 17 :52; Start 09/12/17 at 15:45; Stop 09/12/17 at 15:46; Status DC Potassium Chloride (KCl) 40 meq ONCE ONCE PO Last administered on 09/13/17at 06 :17; Start 09/13/17 at 06:15; Stop 09/13/17 at 06:16; Status DC Potassium Chloride/Sodium Chloride 1,000 ml @ 100 mls/hr Q10H IV Last administered on 09/14/17at 09:08; Start 09/13/17 at 12:15 Potassium Chloride 100 ml @ 100 mls/hr Q1H IV ; Start 09/13/17 at 12:30; Stop 09/13/17 at 15:29; Status Cancel Potassium Chloride (KCl) 20 meq ONCE ONCE PO Last administered on 09/13/17at 20 :51; Start 09/13/17 at 19:30; Stop 09/13/17 at 19:31; Status DC Vancomycin HCl 750 mg/Sodium Chloride 257.5 ml @ 250 mls/hr Q8H IV Last administered on 09/14/17at 05:06; Start 09/13/17 at 22:00 Miscellaneous Information ([facility] Ordered Lab Info) SPECIFIC LAB TO BE .. ONCE ONCE .XX ; Start 09/14/17 at 21:45; Stop 09/14/17 at 21:46 A/P Problem List: (1) PNA (pneumonia) ICD Code: J18.9 - Pneumonia, unspecified organism (2) Hypoxia ICD Code: R09.02 - Hypoxemia (3) Elevated troponin ICD Code: R74.8 - Abnormal levels of other serum enzymes (4) Opiate overdose ICD Code: T40.601A - Poisoning by unspecified narcotics, accidental ( unintentional), initial encounter Assessment and Plan 42 years old female PNA: CXR w/ bibasilar consolidations, WBC 18 trended down, 11 will continue w / IV Abx Vanc/Cefepime, DuoNeb prn. Hypoxia:resolved- good sats at room air. O2 sat 75% on RA on admission, s/p Narcan w/ improvement t monitor O2 closely. Elevated Trop: non cardiac, seen by cardiology- no need for further work up Trop 0.24, denies c/o chest pain, likely demand ischemia from hypoxia, check serial cardiac enzymes for trend, consult Cardiology for further evaluation. Opiate Overdose: and Benzo, unclear how much she took, s/p Narcan. MS improved. Currently under [place]. Psychiatry ff Rhabdomyolysis- start IVF. FF CK level Hypokalemia- received 40 meq po x 1 now. Start IVF with KCL for rhabdo. give another po KCL this evening. check BMP in am DVT Prophylaxis: SCD/Teds. Up and ambulating Move to [facility] Tristin Hardy DO September 14, 2017 12:18
--- NOTE | 2017-09-14 15:27 | PD.AMA ---
Against Medical Advice Note Diagnosis: (1) Major depressive disorder, recurrent (2) PNA (pneumonia) (3) Opiate overdose (4) Elevated troponin (5) Hypoxia Discharge Disposition: Against Medical Advice Pt Condition on Discharge: Fair Recommended Treatment Course FOLLOW UP WITH PCP DON'T OVERDOSE ON PAIN MEDICATIONS AGAIN AMA Statement Patient Alessia Howell has decided to leave the hospital against medical advice. This patient has the capacity to refuse care and understands the risks of leaving, including permanent disability and/or , and has had an opportunity to ask questions about her condition. The patient has been informed that she may return for care at any time, and follow up has been arranged/ advised. Tristin Hardy DO September 14, 2017 15:27
--- NOTE | 2017-09-14 15:34 | HHI.DS ---
Discharge Summary Admission Date September 12, 2017 at 00:40 Discharge Date: September 14, 2017 Admitting Diagnosis OPIATE OVERDOSE S/P NARCAN, PNA WITH HYPOXEMIA, COPD EXAC (1) PNA (pneumonia) ICD Code: J18.9 - Pneumonia, unspecified organism Diagnosis: Principal (2) Hypoxia ICD Code: R09.02 - Hypoxemia (3) Elevated troponin ICD Code: R74.8 - Abnormal levels of other serum enzymes Diagnosis: Principal (4) Opiate overdose ICD Code: T40.601A - Poisoning by unspecified narcotics, accidental ( unintentional), initial encounter Diagnosis: Principal Procedures NONE Brief History - From Admission This is a 42-year-old female with a PMH of Narcotic Abuse who is brought to the ER under [place] by police secondary to apparent Suicide Attempt with Opiate Overdose. Unclear how much medication patient took, however daughter states she saw patient take a handful of her medications which include OxyContin 30mg, Morphine ER 30mg, Valium 10mg and Neurontin 600mg. Daughter noted pt told he she wanted to end her life. S/p Narcan w/ some improvement, however pt remains lethargic and unable to provide much history. Denies complaints at this time, however. On arrival, BP 141/82, HR 106, O2 sat 75% on RA, Afebrile. O2 sat improved to 94% on 3L NC after Narcan. WBC 18.6. Chemistry essentially unremarkable. Troponin 0 0.24. BNP 215. INR 1.0. Urine Drug Screen positive for Opiates and Benzo. Alcohol negative. UA negative for UTI. CXR with bibasilar consolidation. CTA Pulm negative for PE. S/p Rocephin/Zithro/Flagyl in ER. CBC/BMP: 09/13/17 0340 09/14/17 0533 Significant Findings Laboratory Tests Test 09/11/17 22:45 09/11/17 23:10 09/12/17 00:45 09/12/17 06:33 Blood Gas HCO3 32 mmol/L (22-26) Blood Gas Base Excess 7.1 mmol/L (-2-2) Blood Gas Oxygen Saturation 86 % (90-100) Arterial Blood Partial Pressure CO2 56 mmHg (38-42) Arterial Blood Carboxyhemoglobin 9.0 % (0-4) White Blood Count 18.6 TH/MM3 (4.0-11.0) Neutrophils (%) (Auto) 83.3 % (16.0-70.0) Neutrophils # (Auto) 15.5 TH/MM3 (1.8-7.7) Monocytes # (Auto) 1.1 TH/MM3 (0-0.9) Blood Urea Nitrogen 6 MG/DL (7-18) Alkaline Phosphatase 119 U/L (45-117) Chloride Level 97 MEQ/L (98-107) Carbon Dioxide Level 32.3 MEQ/L (21.0-32.0) Estimat Glomerular Filtration Rate 74 ML/MIN (>89) Total Creatine Kinase 374 U/L (26-192) Creatine Kinase MB 4.4 NG/ML (0.5-3.6) Troponin I 0.24 NG/ML (0.02-0.05) 0.15 NG/ML (0.02-0.05) B-Type Natriuretic Peptide 215 PG/ML (0-100) Acetaminophen Level LESS THAN 2.0 MCG/ML Urine Ketones TRACE mg/dL (NEG) Urine Occult Blood SMALL (NEG) Urine Bacteria OCC /hpf (NONE) Urine Opiates Screen POS (NEG) Urine Benzodiazepines Screen POS (NEG) Test 09/13/17 03:40 09/13/17 14:10 09/14/17 05:33 White Blood Count 11.8 TH/MM3 (4.0-11.0) Red Blood Count 3.73 MIL/MM3 (4.00-5.30) Neutrophils # (Auto) 8.2 TH/MM3 (1.8-7.7) Blood Urea Nitrogen 4 MG/DL (7-18) 4 MG/DL (7-18) Total Protein 5.5 GM/DL (6.4-8.2) Albumin 2.6 GM/DL (3.4-5.0) Calcium Level 7.9 MG/DL (8.5-10.1) 8.0 MG/DL (8.5-10.1) Aspartate Amino Transf (AST/SGOT) 42 U/L (15-37) Potassium Level 2.9 MEQ/L (3.5-5.1) 3.3 MEQ/L (3.5-5.1) Chloride Level 109 MEQ/L (98-107) 116 MEQ/L (98-107) Total Creatine Kinase 817 U/L (26-192) 459 U/L (26-192) Creatinine 0.46 MG/DL (0.50-1.00) Sodium Level 146 MEQ/L (136-145) Imaging Last Impressions Chest X-Ray 09/11/172244 Signed Impressions: CONCLUSION: Bibasilar consolidation. CT Angiography 09/11/172244 Signed Impressions: CONCLUSION: 1. No pulmonary embolus. 2. Patchy bibasilar airspace disease, most likely infectious or inflammatory. 3. Mild emphysema. 4. Nonspecific upper limits of normal to mildly enlarged mediastinal and right hilar lymph nodes. PE at Discharge GENERAL: Alert and oriented 3 talkative and cooperative SKIN: Warm and dry. HEAD: Atraumatic. Normocephalic. EYES: Pupils equal and round. No scleral icterus. No injection or drainage. ENT: No nasal bleeding or discharge. Mucous membranes pink and moist. NECK: Trachea midline. No JVD. CARDIOVASCULAR: Regular rate and rhythm. RESPIRATORY: No accessory muscle use. Breath sounds equal bilaterally. Few scattered rhonchi GASTROINTESTINAL: Abdomen soft, non-tender, nondistended. Hepatic and splenic margins not palpable. MUSCULOSKELETAL: Extremities without clubbing, cyanosis, or edema. No obvious deformities. NEUROLOGICAL: Awake and alert. No obvious cranial nerve deficits. Motor grossly within normal limits. Five out of 5 muscle strength in the arms and legs. Normal speech. PSYCHIATRIC: INAppropriate mood and affect; insight and judgment ABnormal. Hospital Course PATIENT WAS [place] ACTED [place] ACT WAS LIFTED BY PSYCHIATRY PATIENT IS NOW LEAVING AMA Pt Condition on Discharge: Fair Discharge Disposition: Discharge Home (PATIENT LEFT AMA) Discharge Time: <= 30 minutes Discharge Instructions DIET: Follow Instructions for: Heart Healthy Diet Speech Therapy-Diet Recommends: Regular Other Activity Instructions: AVOID OVERDOSING ON NARCOTICS AGAIN Additional Information PATENT LEFT Tristin Cade DO September 14, 2017 15:34
[2017-09-14] MEDS ORDERED: PHARMACY ORDERED LAB ONE (21:45)
== END 2017-09-14 15:49 | disposition left against medical advice (07) | DRG 917 ==
LOC: NEPE 22:26 → NEDA 09-12 00:40 → HCIS 09-12 03:50
PROVIDERS: ADMIT Hospitalist; ATTEND Hospitalist
DX: T40.601A Poisoning by unspecified narcotics, accidental (unintentional), initial encounter (principal); J18.9 Pneumonia, unspecified organism; M62.82 Rhabdomyolysis; J44.0 Chronic obstructive pulmonary disease with (acute) lower respiratory infection; J44.1 Chronic obstructive pulmonary disease with (acute) exacerbation; F33.9 Major depressive disorder, recurrent, unspecified; F43.20 Adjustment disorder, unspecified; R74.8 Abnormal levels of other serum enzymes; R09.02 Hypoxemia; E87.6 Hypokalemia; F17.210 Nicotine dependence, cigarettes, uncomplicated
CPT/HCPCS: 36600; 71045; 71275; 80048; 80053; 80202; 80307; 81001; 82550; 82552; 82805; 83735; 83880; 84132; 84484; 85025; 85610; 85730; 93005; 96365; 96368; 96375; J0456; J0692; J0696; J2310; J3370; J3480; J7030; J7050; Q9967